=== PATIENT | male | born 1975 | race Caucasian/White ===

== ENCOUNTER → 2024-06-30 | Outpatient (CLI) | payer OTHER ==
--- NOTE | 2024-06-30 12:18 | US ---
EXAMINATION TYPE: US thyroid st tissue head/neck DATE OF EXAM: 06/30/2024 COMPARISON: CT chest 2013 CLINICAL INDICATION: Male, 48 years old with history of E05.90 THYROTOXICOSIS, UNSP WITHOUT THYROTOXI C CRI; Hyperthyroidism. TECHNIQUE: Grayscale and color Doppler imaging of the thyroid gland. FINDINGS: GLAND SIZE: Right Lobe: 5.8 x 2.1 x 2.2 cm Overall Parenchyma: heterogeneous Left Lobe: 5.4 x 2.2 x 2.3 cm Overall Parenchyma: heterogeneous Isthmus Thickness: 0.5 cm NODULES RIGHT: # of nodules measured on right: 0 LEFT: # of nodules measured on left: 1 1. 0.8 X 0.7 x 0.6 cm, upper lateral, solid or almost completely solid, hypoechoic TR 4 nodule, whi ch is wider than tall, with ill-defined margins, with echogenic foci. Prior size: No prior to compare ISTHMUS: # of nodules measured in the isthmus: 0 Bilateral neck scanned, no evidence of lymphadenopathy. IMPRESSION: 1. Mild thyromegaly with heterogeneous parenchyma, possible goiter. 2. Solitary 8 mm TR4 nodule on the left. TR4: If nodule size is ? 1.5 cm, FNA is recommended. If nodule size is ? 1.0 cm, follow-up imaging at 1, 2, 3, and 5 years is recommended. [facility], , 06/30/2024 12:15 PM
[2024-06-30 15:13] LABS: HCT 40.5 % (39.6-50.0); HGB 13.4 g/dL (13.0-17.0); MCH 29.7 pg (27.0-32.0); MCHC 33.1 g/dL (32.0-37.0); MCV 89.8 FL (80.0-97.0); Mean Platelet Volume 11.6 FL (9.5-12.2); NRBC Per 100 WBC 0 X 10*3/uL (0.00-0.01); Platelet Count 401 X 10*3/uL (140-440); RBC 4.51 X 10*6/uL (4.40-5.60); RDW 16.8 % (11.5-14.5); WBC 8.55 X 10*3/uL (4.50-10.00)
[2024-06-30 15:17] LABS: ALT 13 U/L (10-49); AST 18 U/L (14-35); Albumin 3.6 g/dL (3.8-4.9); Albumin/Globulin Ratio 1.24 Ratio (1.60-3.17); Alkaline Phosphatase 106 U/L (41-126); Bilirubin, Conjugated 0.26 mg/dL (0.20-0.40); Bilirubin,Unconjugated 0.34 mg/dL (0.20-1.00); Globulin 2.9 g/dL (1.6-3.3); T4, Free (Free Thyroxine) 1.08 ng/dL (0.80-1.80); Total Bilirubin 0.6 mg/dL (0.3-1.2); Total Protein 6.5 g/dL (6.2-8.2)
== END | disposition home or self-care (01) ==
LOC: RADUSWWP 10:23
PROVIDERS: ATTEND Internal Medicine
DX: E05.90 Thyrotoxicosis, unspecified without thyrotoxic crisis or storm (principal); E04.1 Nontoxic single thyroid nodule; E07.89 Other specified disorders of thyroid
CPT/HCPCS: 76536; 80076; 84439; 84443; 84445; 84481; 85027; 86376